=== PATIENT | male | born 1945 | race Two or more races ===

== ENCOUNTER 2017-04-13 08:10 | Day surgery (SDC) | payer MEDICARE, OTHER ==
[2017-04-12 11:08] VITALS: BMI 27.2
[~2017-04-13 08:10] MED LIST: LACTATED RINGERS 1,000 ML IV SCH
[2017-04-13 09:00] VITALS: TEMP 97.8
[2017-04-13] MEDS ORDERED: LIDOCAINE 1% 20 ML VIAL (10MG/ML) FOR IV START INTRADERMA ONE (09:02)
[2017-04-13 09:06] LABS: Glucose,Whole Blood 113 mg/dL (75-99)
[2017-04-13] MEDS ORDERED: GLYCOPYRROLATE 0.2 MG/ML 2 ML VIAL ONE (09:09)
[2017-04-13] MEDS ORDERED: LIDOCAINE 1% INJ 10MG/ML (20 ML MDV) ONE (09:09)
[2017-04-13] MEDS ORDERED: PROPOFOL 10 MG/ML 20 ML VIAL IV ONE (09:09)
--- NOTE | 2017-04-13 09:43 | P.PCN ---
Date of Procedure: 04/13/17 Procedure(s) Performed: Brief history: Patient is a pleasant 71-year-old male scheduled for an elective upper endoscopy as well as colonoscopy as a part of evaluation of I deficiency anemia. He was recently noted to have a hemoglobin of 11.5 g/dL. He has history of atrial fibrillation and valve replacement and has been on oral anticoagulation with Coumadin. Procedure performed: Esophagogastroduodenoscopy with biopsy Colonoscopy with snare polypectomy Preoperative diagnosis: Iron deficiency anemia Anesthesia: MAC Procedure: After informed consent was obtained from the patient was brought into the endoscopy unit and IV sedation was administered by anesthesia under continuous monitoring. Initially upper endoscopy was done. The Olympus GF 160 video endoscope was inserted inserted into the mouth and esophagus intubated without any difficulty and was gradually advanced into the stomach and duodenum and carefully examined. The bulb and second part of the duodenum appeared normal. The scope was then withdrawn into the stomach adequately insufflated with air and upon careful examination the antrum had mild gastritis and biopsies were done from this area. The body, cardia and fundus appeared normal. The scope was then withdrawn into the esophagus. The GE junction was located at 40 cm to the incisors. There was a 5 mm polyp noted at the GE junction and this was biopsied. The GE junction appeared regular with no erythema erosions or ulcerations. Rest of the esophagus appeared normal. Patient tolerated the procedure well. At this time the patient continued to remain sedation. Initial digital rectal examination was normal. Olympus CF 160 video colonoscope was then inserted into the rectum and gradually advanced to the cecum without any difficulty. Careful examination was performed as the scope was gradually being withdrawn. The prep was excellent. The cecum, appeared normal. In the ascending colon close to the hepatic flexure there was a 2 cm broad-based polyp that was removed by piecemeal snare polypectomy and complete polypectomy was accomplished. The rest of theascending colon, transverse colon, descending colon, sigmoid colon and rectum appeared normal. Retroflexion was performed in the rectum and no lesions were noted. Patient tolerated the procedure well. Impression: 1. Upper endoscopy revealed mild antral gastritis and a small 5 mm GE junction polyp that was biopsied 2. Colonoscopy revealed 2 cm broad-based distal ascending colon polyp status post polypectomy. Rest of the colon appeared normal Recommendations: Findings of this examination were discussed with the patient as well as his family. He was advised to follow with the biopsy results. He will hold off on the Coumadin for today and tomorrow and resume on Sunday. At this time will follow with the biopsy results and if the biopsy shows a tubular adenoma he can have a repeat colonoscopy in 3 years
[2017-04-13 10:10] VITALS: BP 162/73; PULSE 56; RESP 18
== END 2017-04-13 10:52 | disposition home or self-care (01) ==
LOC: ORWHC2ENDO 08:10
PROVIDERS: ATTEND Internal Medicine Gastroenterology
DX: D12.2 Benign neoplasm of ascending colon (principal); K31.7 Polyp of stomach and duodenum; K29.50 Unspecified chronic gastritis without bleeding; I48.91 Unspecified atrial fibrillation; D50.9 Iron deficiency anemia, unspecified; I10 Essential (primary) hypertension; E11.9 Type 2 diabetes mellitus without complications; N40.0 Benign prostatic hyperplasia without lower urinary tract symptoms; Z95.2 Presence of prosthetic heart valve; Z79.01 Long term (current) use of anticoagulants; Z79.84 Long term (current) use of oral hypoglycemic drugs; Z79.899 Other long term (current) drug therapy
CPT/HCPCS: 45385; 43239; 88305; 88342; J2001; J2704

== ENCOUNTER 2017-04-20 16:09 | Inpatient (IN) | payer MEDICARE, OTHER ==
[2017-04-20] MEDS ORDERED: DILTIAZEM 125 MG in SODIUM CHLORIDE 0.9% 100 ML IV ONE (16:28)
[2017-04-20] MEDS ORDERED: SODIUM CHLORIDE 0.9% 1,000 ML IV STA ×2 (16:28)
[2017-04-20] MEDS ORDERED: DILTIAZEM 5 MG/ML 5 ML VIAL IVP STA (16:28)
[2017-04-20 16:42] LABS: Anisocytosis Slight; Basophils % (A) 0 %; CH 24.3; CHCM 30.1; Eosinophils # (A) 0.1 k/uL (0-0.7); Eosinophils % (A) 3 %; HCT 42.5 % (39.0-53.0); HDW 2.97; HGB 12.6 gm/dL (13.0-17.5); Hypochromasia Marked; Luc # (Auto) 0.12; Luc % (Auto) 2; Lymphocytes # (A) 1.4 k/uL (1.0-4.8); Lymphocytes % (A) 26 %; MCH 24.1 pg (25.0-35.0); MCHC 29.8 g/dL (31.0-37.0); Mean Platelet Volume 9.9; Monocytes # (A) 0.4 k/uL (0-1.0); Monocytes % (A) 8 %; Neutrophils # (A) 3.2 k/uL (1.3-7.7); Neutrophils % (A) 61 %; RBC 5.24 m/uL (4.30-5.90); RDW 16.8 % (11.5-15.5); WBC 5.3 k/uL (3.8-10.6)
--- NOTE | 2017-04-20 16:50 | ED ---
General Adult HPI - General Chief complaint: Dizziness Stated complaint: Dizziness Time Seen by Provider: 04/20/17 16:23 Source: patient, RN notes reviewed, old records reviewed Mode of arrival: wheelchair Limitations: no limitations - History of Present Illness Initial comments: This is a 71-year-old male to the ER for evaluation of near syncopal event. Patient states he has palpitations and his heart feels irregular. Patient has history of atrial fibrillation and high blood pressure. Taking all medications as prescribed. Patient sometimes goes out of normal sinus rhythm into A. fib. This happens about twice a year. Patient states he feels a little bit weak and lightheaded. Currently just restart anticoagulation secondary to having recent procedure. Patient denies any other complaints. Patient denies chest pain no recent fever nausea vomiting or diarrhea - Related Data Home Medications Medication Instructions Recorded Confirmed Atenolol [Tenormin] 50 mg PO HS 04/12/17 04/20/17 Atorvastatin [Lipitor] 20 mg PO DAILY 04/12/17 04/20/17 Dutasteride [Avodart] 0.5 mg PO DAILY 04/12/17 04/20/17 Losartan Potassium [Cozaar] 100 mg PO DAILY 04/12/17 04/20/17 Tamsulosin HCl [Flomax] 0.4 mg PO HS 04/12/17 04/20/17 Warfarin [Coumadin] 2.5 mg PO Q48H 04/12/17 04/20/17 Warfarin [Coumadin] 5 mg PO Q48H 04/12/17 04/20/17 amLODIPine [Norvasc] 10 mg PO HS 04/12/17 04/20/17 metFORMIN HCL [Glucophage] 500 mg PO HS 04/12/17 04/20/17 traZODone HCL 50 mg PO HS PRN 04/12/17 04/20/17 sitaGLIPtin PHOS/metFORMIN HCL 1 tab PO BID 04/20/17 04/20/17 [Janumet 50-500 mg Tablet] Allergies Allergy/AdvReac Type Severity Reaction Status Date / Time No Known Allergies Allergy Verified 04/20/17 17:19 Review of Systems ROS Statement: Those systems with pertinent positive or pertinent negative responses have been documented in the HPI. ROS Other: All systems not noted in ROS Statement are negative. Past Medical History Past Medical History: Atrial Fibrillation, Diabetes Mellitus, Hypertension History of Any Multi-Drug Resistant Organisms: None Reported Additional Past Surgical History / Comment(s): MITRAL VALVE REPLACEMENT Past Psychological History: No Psychological Hx Reported Smoking Status: Never smoker Past Alcohol Use History: None Reported Past Drug Use History: None Reported General Exam Limitations: no limitations General appearance: alert, in no apparent distress Head exam: Present: atraumatic, normocephalic, normal inspection Eye exam: Present: normal appearance, PERRL, EOMI. Absent: scleral icterus, conjunctival injection, periorbital swelling ENT exam: Present: normal exam, mucous membranes moist Neck exam: Present: normal inspection. Absent: tenderness, meningismus, lymphadenopathy Respiratory exam: Present: normal lung sounds bilaterally. Absent: respiratory distress, wheezes, rales, rhonchi, stridor Cardiovascular Exam: Present: tachycardia, irregular rhythm, normal heart sounds. Absent: systolic murmur, diastolic murmur, rubs, gallop, clicks GI/Abdominal exam: Present: soft, normal bowel sounds. Absent: distended, tenderness, guarding, rebound, rigid Extremities exam: Present: normal inspection, full ROM, normal capillary refill. Absent: tenderness, pedal edema, joint swelling, calf tenderness Back exam: Present: normal inspection Neurological exam: Present: alert, oriented X3, CN II-XII intact Psychiatric exam: Present: normal affect, normal mood Skin exam: Present: warm, dry, intact, normal color. Absent: rash Course Vital Signs 04/20/17 04/20/17 04/20/17 16:11 17:06 17:24 Temperature 97.6 F Pulse Rate 81 70 77 Respiratory 16 18 Rate Blood Pressure 139/74 130/73 O2 Sat by Pulse 99 98 Oximetry - Reevaluation(s) Reevaluation #1: 04/20/17 18:10 In speaking with patient's family, patient had near syncopal event secondary to his heart rate at home. They're concerned for patient safety EKG Findings - EKG Comments: EKG Findings:: EKG shows atrial flutter with RVR rate 104, QRS 90, QTC 448. EKG repeat. EKG shows atrial fibrillation rate of 75, QRS 86, QTc 451 Medical Decision Making - Medical Decision Making 72 male here for evaluation. Patient in A. fib with RVR. Patient be admitted for rate control and anticoagulation. - Lab Data Result diagrams: 04/20/17 16:30 04/20/17 16:30 Lab Results 04/20/17 04/20/17 04/20/17 Range/Units 16:30 16:30 16:30 WBC 5.3 (3.8-10.6) k/uL RBC 5.24 (4.30-5.90) m/uL Hgb 12.6 L (13.0-17.5) gm/dL Hct 42.5 (39.0-53.0) % MCV 81.0 (80.0-100.0) fL MCH 24.1 L (25.0-35.0) pg MCHC 29.8 L (31.0-37.0) g/dL RDW 16.8 H (11.5-15.5) % Plt Count 190 (150-450) k/uL Neutrophils % 61 % Lymphocytes % 26 % Monocytes % 8 % Eosinophils % 3 % Basophils % 0 % Neutrophils # 3.2 (1.3-7.7) k/uL Lymphocytes # 1.4 (1.0-4.8) k/uL Monocytes # 0.4 (0-1.0) k/uL Eosinophils # 0.1 (0-0.7) k/uL Basophils # 0.0 (0-0.2) k/uL Hypochromasia Marked Anisocytosis Slight PT (9.0-12.0) sec INR (<1.2) APTT (22.0-30.0) sec Sodium 144 (137-145) mmol/L Potassium 4.2 (3.5-5.1) mmol/L Chloride 106 (98-107) mmol/L Carbon Dioxide 27 (22-30) mmol/L Anion Gap 11 mmol/L BUN 18 (9-20) mg/dL Creatinine 1.21 (0.66-1.25) mg/dL Est GFR (MDRD) Af Amer >60 (>60 ml/min/1.73 sqM) Est GFR (MDRD) Non-Af 59 (>60 ml/min/1.73 sqM) Glucose 93 (74-99) mg/dL Calcium 9.4 (8.4-10.2) mg/dL Phosphorus 3.7 (2.5-4.5) mg/dL Magnesium 2.0 (1.6-2.3) mg/dL Total Bilirubin 0.3 (0.2-1.3) mg/dL AST 22 (17-59) U/L ALT 36 (21-72) U/L Alkaline Phosphatase 70 (38-126) U/L Total Creatine Kinase 222 H (55-170) U/L CK-MB (CK-2) 2.7 H* (0.0-2.4) ng/mL CK-MB (CK-2) Rel Index 1.2 Troponin I <0.012 (0.000-0.034) ng/mL Total Protein 6.6 (6.3-8.2) g/dL Albumin 4.2 (3.5-5.0) g/dL 04/20/17 Range/Units 16:30 WBC (3.8-10.6) k/uL RBC (4.30-5.90) m/uL Hgb (13.0-17.5) gm/dL Hct (39.0-53.0) % MCV (80.0-100.0) fL MCH (25.0-35.0) pg MCHC (31.0-37.0) g/dL RDW (11.5-15.5) % Plt Count (150-450) k/uL Neutrophils % % Lymphocytes % % Monocytes % % Eosinophils % % Basophils % % Neutrophils # (1.3-7.7) k/uL Lymphocytes # (1.0-4.8) k/uL Monocytes # (0-1.0) k/uL Eosinophils # (0-0.7) k/uL Basophils # (0-0.2) k/uL Hypochromasia Anisocytosis PT 16.0 H (9.0-12.0) sec INR 1.7 H (<1.2) APTT 27.8 (22.0-30.0) sec Sodium (137-145) mmol/L Potassium (3.5-5.1) mmol/L Chloride (98-107) mmol/L Carbon Dioxide (22-30) mmol/L Anion Gap mmol/L BUN (9-20) mg/dL Creatinine (0.66-1.25) mg/dL Est GFR (MDRD) Af Amer (>60 ml/min/1.73 sqM) Est GFR (MDRD) Non-Af (>60 ml/min/1.73 sqM) Glucose (74-99) mg/dL Calcium (8.4-10.2) mg/dL Phosphorus (2.5-4.5) mg/dL Magnesium (1.6-2.3) mg/dL Total Bilirubin (0.2-1.3) mg/dL AST (17-59) U/L ALT (21-72) U/L Alkaline Phosphatase (38-126) U/L Total Creatine Kinase (55-170) U/L CK-MB (CK-2) (0.0-2.4) ng/mL CK-MB (CK-2) Rel Index Troponin I (0.000-0.034) ng/mL Total Protein (6.3-8.2) g/dL Albumin (3.5-5.0) g/dL - Radiology Data Radiology results: report reviewed (CXR is negative fora cute disease), image reviewed Disposition Clinical Impression: Atrial fibrillation with RVR Disposition: ADMITTED IP TO THIS HOSP Condition: Good Referrals: Corey Retana MD [Primary Care Provider] - 1-2 days
[2017-04-20 16:51] LABS: INR 1.7 (<1.2); Partial Thromboplastin Time 27.8 sec (22.0-30.0)
[2017-04-20 16:52] LABS: ALT 36 U/L (21-72); AST 22 U/L (17-59); Alkaline Phosphatase 70 U/L (38-126); Anion Gap 11 mmol/L; Blood Urea Nitrogen 18 mg/dL (9-20); Calcium 9.4 mg/dL (8.4-10.2); Carbon Dioxide 27 mmol/L (22-30); Chloride 106 mmol/L (98-107); Glucose 93 mg/dL (74-99); Non-African American GFR(MDRD) 59 (>60 ml/min/1.73 sqM); Phosphorus 3.7 mg/dL (2.5-4.5); Potassium 4.2 mmol/L (3.5-5.1); Sodium 144 mmol/L (137-145); Total Bilirubin 0.3 mg/dL (0.2-1.3); Total Protein 6.6 g/dL (6.3-8.2)
[2017-04-20 17:00] LABS: Creatine Kinase 222 U/L (55-170)
[2017-04-20 17:14] LABS: Troponin I <0.012 ng/mL (0.000-0.034)
[2017-04-20 17:20] LABS: Creatine Kinase MB 2.7 ng/mL (0.0-2.4)
--- NOTE | 2017-04-20 17:53 | XR ---
EXAMINATION TYPE: XR chest 2V DATE OF EXAM: 04/20/2017 COMPARISON: NONE HISTORY: Atrial fibrillation. Weakness. TECHNIQUE: Frontal and lateral views of the chest are obtained. FINDINGS: There is no heart failure nor confluent pneumonic infiltrate. There are sternal wires. The re are chest leads. Costophrenic angles are clear. Bony thorax appears intact. IMPRESSION: No active cardiopulmonary disease. Old left clavicle fracture noted.
[2017-04-20] MEDS ORDERED: HEPARIN SODIUM,PORCINE 5,000 UNIT/ML 1 ML VIAL IV ONE (18:06)
[2017-04-20] MEDS ORDERED: HEPARIN SODIUM,PORCINE 5,000 UNIT/ML 1 ML VIAL IV PRN (18:06)
[2017-04-20] MEDS ORDERED: NITROGLYCERIN SL TABS 0.4 MG TAB SUBLINGUAL PRN (18:06)
[2017-04-20] MEDS ORDERED: HEPARIN SODIUM,PORCINE/D5W PMX 25,000 UNIT in DEXTROSE/WATER 1 500ML.BAG IV SCH (18:15)
[2017-04-20 20:45] VITALS: BMI 28.5
[2017-04-20 20:47] LABS: Glucose,Whole Blood 131 mg/dL (75-99)
[2017-04-20] MEDS ORDERED: metFORMIN 500 MG TAB PO SCH (21:00)
[2017-04-20] MEDS ORDERED: METOPROLOL TARTRATE 50 MG TAB PO SCH (21:00)
[2017-04-20] MEDS: amLODIPine 10 MG TAB PO SCH (21:41)
[2017-04-20] MEDS: metFORMIN 500 MG TAB PO SCH (21:41)
[2017-04-20] MEDS: TAMSULOSIN 0.4 MG CAP.ER.24H PO SCH (21:42)
[2017-04-20] MEDS: traZODone HCL 50 MG TAB PO PRN (22:13)
[2017-04-20] MEDS: ATENOLOL 50 MG TAB PO SCH (22:13)
[2017-04-20] MEDS: SODIUM CHLORIDE 0.9% 1,000 ML IV SCH (23:11)
[2017-04-20] MEDS ORDERED: traMADol 50 MG TAB PO PRN (23:45)
[2017-04-20] MEDS ORDERED: ALPRAZolam 0.25 MG TAB PO PRN (23:45)
[2017-04-20] MEDS ORDERED: ONDANSETRON 4 MG/2 ML VIAL IVP PRN (23:46)
[2017-04-20] MEDS ORDERED: MELATONIN 5 MG TABLET PO PRN (23:46)
[2017-04-21 00:34] LABS: Creatine Kinase 153 U/L (55-170)
[2017-04-21 00:47] LABS: Troponin I <0.012 ng/mL (0.000-0.034)
[2017-04-21 05:56] LABS: Glucose,Whole Blood 110 mg/dL (75-99)
[2017-04-21] MEDS: SODIUM CHLORIDE 0.9% 1,000 ML IV SCH (06:19)
[2017-04-21 06:32] LABS: Mean Platelet Volume 10.8
[2017-04-21 06:43] LABS: Cholesterol 64 mg/dL (<200); HDL Cholesterol 25 mg/dL (40-60)
[2017-04-21] MEDS: LINAGLIPTIN 5 MG TABLET PO SCH (06:47)
[2017-04-21] MEDS: metFORMIN 500 MG TAB PO SCH ×2 (06:47→16:48)
[2017-04-21 06:52] LABS: Creatine Kinase 134 U/L (55-170)
[2017-04-21 07:03] LABS: Creatine Kinase MB 1.6 ng/mL (0.0-2.4); Troponin I <0.012 ng/mL (0.000-0.034)
[2017-04-21] MEDS ORDERED: metFORMIN 500 MG TAB PO SCH (07:30)
[2017-04-21] MEDS: ATENOLOL 50 MG TAB PO SCH (08:35)
[2017-04-21] MEDS: LOSARTAN 50 MG TAB PO SCH (08:35)
[2017-04-21] MEDS: FINASTERIDE 5 MG TAB PO SCH (08:35)
[2017-04-21] MEDS ORDERED: ASPIRIN 325 MG TAB PO SCH (09:00)
[2017-04-21] MEDS ORDERED: ATORVASTATIN 20 MG TAB PO SCH ×2 (09:00→11:35)
[2017-04-21] MEDS ORDERED: ATORVASTATIN 40 MG TAB PO SCH (10:09)
[2017-04-21] MEDS ORDERED: FUROSEMIDE 10 MG/ML 2 ML VIAL IV STA (10:10)
[2017-04-21] MEDS ORDERED: FUROSEMIDE 10 MG/ML 4 ML VIAL ONE (10:16)
[2017-04-21 10:26] LABS: Prothrombin Time 19.5 sec (9.0-12.0)
[2017-04-21 11:21] LABS: Glucose,Whole Blood 66 mg/dL (75-99)
[2017-04-21 11:36] LABS: Glucose,Whole Blood 104 mg/dL (75-99)
--- NOTE | 2017-04-21 12:01 | CONS ---
CONSULTATION Mr. Hairston is a 71-year-old gentleman who is seen for cardiac evaluation. This patient's medical record is reviewed. The patient gives a history that he felt irregular heartbeat on and off yesterday. It continued for several hours. He was slightly dizzy he did not have any significant shortness of breath. The patient gives a history that this does happen 2 or 3 times a year. The last time it happened was about 4 or 5 months ago. The patient is otherwise moderately active physically. He walks 20 to 30 minutes a day. The patient is status post mitral valve replacement at [facility] about 3 or 4 years ago. He has a history of hypertension and diabetes. There is no history of angina. There is no history of prior myocardial infarction. HOME MEDICATIONS: Home medications include to Tenormin, Lipitor 20 mg daily, Avodart, Cozaar 100 mg daily, Coumadin, Norvasc, Glucophage and Janumet. PAST MEDICAL HISTORY: Past medical history includes history of hypertension, diabetes, atrial fibrillation, mitral valve replacement. SOCIAL HISTORY: Smoking history, no history of any smoking. PHYSICAL EXAMINATION: Physical examination at present reveals a 71-year-old gentleman who does not appear to be in any acute distress. The patient's heart rate now is 65 per minute, blood pressure is 132/94 mmHg, oxygen saturation is 94%. Head/ENT examination is negative. Neck is supple. Jugular venous pressure is elevated. Both the carotid pulses are felt. There is no bruit. Chest is symmetrical. HEART: The PMI is not felt. First and second heart sounds are normal. Lungs examination reveal bilateral basal rales. Abdomen is soft. EXTREMITIES: There is a trace leg edema. The patient recently had a echocardiogram done, which showed evidence of a normally functioning prosthetic valve. Patient had mild pulmonary hypertension. Chest x-ray suggestive of possible mild congestive cardiac failure. The patient's INR is 1.7. UA is negative. The patient's troponins are normal. The patient's cholesterol is 64 and LDL is 19. FINAL IMPRESSION: 1. This patient came with the paroxysmal atrial fibrillation associated with little dizziness. The patient is now converted to the normal sinus rhythm. Patient has probably mild congestive cardiac failure with some elevation in jugular venous pressure. 2. History of diabetes and hypertension. 3. Status post mitral valve replacement. RECOMMENDATIONS: I discussed with the patient and daughter, we will try the patient on flecainide 50 mg b.i.d. to prevent the recurrent episodes of atrial fibrillation. We will discontinue Cardizem, heparin and give him 5 mg of Coumadin today. I will check the BNP and give him 1 dose of Lasix 20 mg IV. Patient would be ambulated. If he remains stable, the patient can be discharged home tomorrow. Would recommend to do a stress test as an outpatient on flecainide. NHUNG / BALWINDERN: [id number] /
[2017-04-21] MEDS: SPIRONOLACTONE 25 MG TAB PO SCH (13:09)
[2017-04-21] MEDS: FLECAINIDE 50 MG TAB PO SCH ×2 (13:10→20:20)
[2017-04-21 16:44] LABS: Glucose,Whole Blood 160 mg/dL (75-99)
--- NOTE | 2017-04-21 17:24 | P.HPIM ---
History of Present Illness H&P Date: 04/21/17 Chief Complaint: Dizziness Mr. Hairston is a 71-year-old male with a known history of atrial fibrillation on anticoagulation with Coumadin, hypertension, diabetes type 2 non-insulin- dependent and also history of mitral valvel repair 10 years ago came to ER with complaints of dizziness and near syncope. Patient says that he has atrial fibrillation and sometimes he does have palpitations. At this particular time patient has the symptoms for a prolonged time for about few hours and he felt like heart beating fast and made him come to the ER. Patient also felt weak and lightheaded. Patient does take Coumadin for anticoagulation. He follows with Dr. Butcher as an outpatient. Denied any fever or chills. No nausea vomiting or diarrhea. No complaints of abdominal pain. Patient also had some tiredness and weakness. Denied any exertional short of breath EKG showed atrial fibrillation with a rapid ventricular rate 101 Chest x-ray showed no active pulmonary process. Troponin 3 negative. BNP 555 Patient had recent echocardiogram at Dr. Butcher's office showed normal ejection fraction. Moderate tricuspid regurgitation and severely dilated left atrium. Review of Systems Constitutional: Patient denies any fever or chills . No generalized weakness or weight loss. Abdomen: Patient denied nausea vomiting and diarrhea and abdominal pain. Cardiovascular: Patient denies any chest pain or short of breath no palpitations. No orthopnea no PND no leg swelling Respiratory: patient denied any cough is from production. No shortness of breath Neurologic: Patient denied any numbness or tingling headache. Musculoskeletal: Patient denies any complaints of joint swelling or deformity. Skin: Negative Psychiatric: Negative Endocrine: No heat or cold intolerance. No recent weight gain. Genitourinary: No dysuria or hematuria. All other 14 point ROS negative except the above Past Medical History Past Medical History: Atrial Fibrillation, Diabetes Mellitus, Hypertension History of Any Multi-Drug Resistant Organisms: None Reported Additional Past Surgical History / Comment(s): MITRAL VALVE REPLACEMENT Past Anesthesia/Blood Transfusion Reactions: No Reported Reaction Past Psychological History: No Psychological Hx Reported Smoking Status: Never smoker Past Alcohol Use History: None Reported Past Drug Use History: None Reported - Past Family History Mother Family Medical History: Diabetes Mellitus, Hypertension Additional Family Medical History / Comment(s): brain hemorrhage, past away Father Family Medical History: Congestive Heart Failure (CHF), Myocardial Infarction ( [place]) Medications and Allergies Home Medications Medication Instructions Recorded Confirmed Type Atenolol [Tenormin] 50 mg PO HS 04/12/17 04/20/17 History Atorvastatin [Lipitor] 20 mg PO DAILY 04/12/17 04/20/17 History Dutasteride [Avodart] 0.5 mg PO DAILY 04/12/17 04/20/17 History Losartan Potassium [Cozaar] 100 mg PO DAILY 04/12/17 04/20/17 History Tamsulosin HCl [Flomax] 0.4 mg PO HS 04/12/17 04/20/17 History Warfarin [Coumadin] 2.5 mg PO Q48H 04/12/17 04/20/17 History Warfarin [Coumadin] 5 mg PO Q48H 04/12/17 04/20/17 History amLODIPine [Norvasc] 10 mg PO HS 04/12/17 04/20/17 History metFORMIN HCL [Glucophage] 500 mg PO HS 04/12/17 04/20/17 History traZODone HCL 50 mg PO HS PRN 04/12/17 04/20/17 History sitaGLIPtin PHOS/metFORMIN HCL 1 tab PO BID 04/20/17 04/20/17 History [Janumet 50-500 mg Tablet] Allergies Allergy/AdvReac Type Severity Reaction Status Date / Time No Known Allergies Allergy Verified 04/20/17 17:19 Physical Exam Vitals: Vital Signs Temp Pulse Pulse Resp BP BP Pulse Ox 04/21/17 08:00 65 16 04/21/17 03:41 97.1 F L 65 16 132/94 94 L 04/21/17 00:00 63 16 123/72 95 04/20/17 20:11 96.9 F L 61 16 122/76 98 04/20/17 19:05 97.6 F 66 16 125/71 98 04/20/17 18:42 64 18 125/71 96 04/20/17 18:20 60 18 140/66 97 04/20/17 17:24 77 04/20/17 17:06 70 18 130/73 98 04/20/17 16:11 97.6 F 81 16 139/74 99 Intake and Output 04/20/17 04/21/17 04/21/17 22:59 06:59 14:59 Intake Total 0 400 640.526 Balance 0 400 640.526 Intake: Intake, IV Titration 0 280.526 Amount Diltiazem 125 mg In 0 Sodium Chloride 0.9% 100 ml @ 5 MG/HR 5 mls/hr IV .Q24H [facility] Rx#:[id number] Heparin Sodium,Porcine/ 280.526 D5w Pmx 25,000 unit In Dextrose/Water 1 500ml. bag @ 11.36 UNITS/KG/HR 19.99 mls/hr IV .Q24H [facility] Rx#:[id number] Oral 400 360 Other: Voiding Method Toilet Toilet # Voids 1 Weight 90.265 kg 90.4 kg PHYSICAL EXAMINATION: Patient is lying in the bed comfortably, no acute distress, awake alert and oriented.. HEENT: Normocephalic. Neck is supple. Pupils reactive. Nostrils clear. Oral cavity is moist. Ears reveal no drainage. Neck reveals no JVD, carotid bruits, or thyromegaly. CHEST EXAMINATION: Trachea is central. Symmetrical expansion. Right basilar crackles. No wheezing. CARDIAC: Normal S1, S2 with no gallops. Possible diastolic murmur ABDOMEN: Soft. Bowel sounds normal. No organomegaly. No abdominal bruits. Extremities: reveal no edema. No clubbing or cyanosis Neurologically awake, alert, oriented x3 with well-coordinated movements. No focal deficits noted Skin: No rash or skin lesions. Psychiatric: Operative. Nonsuicidal Musculoskeletal: No joint swelling or deformity. Normal range of motion. Results CBC & Chem 7: 04/21/17 05:34 04/20/17 16:30 Labs: Abnormal Lab Results - Last 24 Hours (Table) 04/20/17 04/20/17 04/20/17 Range/Units 16:30 16:30 16:30 Hgb 12.6 L (13.0-17.5) gm/dL MCH 24.1 L (25.0-35.0) pg MCHC 29.8 L (31.0-37.0) g/dL RDW 16.8 H (11.5-15.5) % PT 16.0 H (9.0-12.0) sec INR 1.7 H (<1.2) APTT (22.0-30.0) sec POC Glucose (mg/dL) (75-99) mg/dL Total Creatine Kinase 222 H (55-170) U/L CK-MB (CK-2) 2.7 H* (0.0-2.4) ng/mL HDL Cholesterol (40-60) mg/dL 04/20/17 04/20/17 04/21/17 Range/Units 20:39 23:40 05:33 Hgb (13.0-17.5) gm/dL MCH (25.0-35.0) pg MCHC (31.0-37.0) g/dL RDW (11.5-15.5) % PT (9.0-12.0) sec INR (<1.2) APTT 51.8 H (22.0-30.0) sec POC Glucose (mg/dL) 131 H (75-99) mg/dL Total Creatine Kinase (55-170) U/L CK-MB (CK-2) (0.0-2.4) ng/mL HDL Cholesterol 25 L (40-60) mg/dL 04/21/17 04/21/17 Range/Units 05:53 05:55 Hgb (13.0-17.5) gm/dL MCH (25.0-35.0) pg MCHC (31.0-37.0) g/dL RDW (11.5-15.5) % PT (9.0-12.0) sec INR (<1.2) APTT 38.0 H (22.0-30.0) sec POC Glucose (mg/dL) 110 H (75-99) mg/dL Total Creatine Kinase (55-170) U/L CK-MB (CK-2) (0.0-2.4) ng/mL HDL Cholesterol (40-60) mg/dL Thrombosis Risk Factor Assmnt - Choose All That Apply Any of the Below Risk Factors Present?: Yes Each Factor Represents 1 point: Obesity (BMI >25) Each Risk Factor Represents 2 Points: Age 61-74 years Thrombosis Risk Factor Assessment Total Risk Factor Score: 3 Thrombosis Risk Factor Assessment Level: Moderate Risk Assessment and Plan Assessment: #1 dizziness and near syncope likely due to A. fib with RVR #2 paroxysmal atrial fibrillation on anticoagulation with Coumadin #3 moderate aortic regurgitation and severely dilated left atrium with normal EF as per recent echocardiogram #4 diabetes type 2 #5 hypertension #6 history of mitral valve repair. #7 possible acute CHF with preserved ejection fraction. Underlying valvular heart disease Plan: Patient was started back on his Tenormin dose. Heart rate was better controlled and did not require Cardizem drip. Due to recurrent atrial fibrillation episodes patient was started on flecainide as per cardiology recommendations. Patient was given a dose of Lasix and follow closely continue with the Coumadin dosing and further recommendations based on the clinical course. Discussed with patient's daughter in detail about his medical condition and management. Time with Patient: Greater than 30
[2017-04-21 17:36] LABS: Iron Saturation 4.09 (15.00-50.00)
[2017-04-21] MEDS ORDERED: WARFARIN 5 MG TAB PO SCH ×2 (18:00)
[2017-04-21] MEDS: TAMSULOSIN 0.4 MG CAP.ER.24H PO SCH (20:20)
[2017-04-21] MEDS: amLODIPine 10 MG TAB PO SCH (20:20)
[2017-04-21 21:01] LABS: Glucose,Whole Blood 124 mg/dL (75-99)
[2017-04-21] MEDS: traZODone HCL 50 MG TAB PO PRN (21:04)
[2017-04-22 06:25] LABS: Glucose,Whole Blood 118 mg/dL (75-99)
[2017-04-22 06:35] LABS: Prothrombin Time 19.6 sec (9.0-12.0)
[2017-04-22 06:36] LABS: Mean Platelet Volume 7.7
[2017-04-22] MEDS: LINAGLIPTIN 5 MG TABLET PO SCH (06:52)
[2017-04-22] MEDS: metFORMIN 500 MG TAB PO SCH (06:52)
[2017-04-22] MEDS: FINASTERIDE 5 MG TAB PO SCH (08:23)
[2017-04-22] MEDS: LOSARTAN 50 MG TAB PO SCH (08:24)
[2017-04-22] MEDS: FLECAINIDE 50 MG TAB PO SCH (08:24)
[2017-04-22] MEDS: SPIRONOLACTONE 25 MG TAB PO SCH (08:24)
[2017-04-22] MEDS: ATENOLOL 50 MG TAB PO SCH (08:24)
[2017-04-22 09:22] VITALS: TEMP 97
[2017-04-22 11:30] LABS: Glucose,Whole Blood 102 mg/dL (75-99)
[2017-04-22 11:32] VITALS: BP 143/80; PULSE 61; RESP 18
--- NOTE | 2017-04-22 15:53 | PN ---
PROGRESS NOTE This patient was admitted with paroxysmal atrial fibrillation. The patient was started on flecainide 50 mg b.i.d. He is tolerating well. He is remaining in normal sinus rhythm. The patient's blood pressure is 143/80 mmHg. First and second heart sounds are normal. Lungs are clinically clear to auscultation and percussion. Now there is no evidence of any elevated jugular venous pressure. The patient will be discharged home on flecainide and Aldactone. We will check a BMP in 3-4 days and patient will follow up with Dr. SULAIMAN Bucther within a week to 2 weeks. MMODL / IJN: [id number] /
[2017-04-22] MEDS ORDERED: WARFARIN 2.5 MG TAB PO SCH (18:00)
--- NOTE | 2017-06-18 21:36 | P.DS ---
Providers Date of admission: 04/20/17 18:06 Expected date of discharge: 04/22/17 Attending physician: Soniya Damian Consults: 04/20/17 18:06 Consult Physician Urgent Consulting Provider: Antonieta Murillo Consult Reason/Comments: afib Do you want consulting provider notified?: Yes Primary care physician: Corey Retana Hospital Course: Discharge diagnosis #1 dizziness and near syncope likely due to A. fib with RVR #2 paroxysmal atrial fibrillation on anticoagulation with Coumadin #3 moderate aortic regurgitation and severely dilated left atrium with normal EF as per recent echocardiogram #4 diabetes type 2 #5 hypertension #6 history of mitral valve repair. #7 possible acute CHF with preserved ejection fraction. Underlying valvular heart disease. Improved symptomatically with the diuresis. Hospital course Mr. Hairston is a 71-year-old male with a known history of atrial fibrillation on anticoagulation with Coumadin, hypertension, diabetes type 2 non-insulin- dependent and also history of mitral valvel repair 10 years ago came to ER with complaints of dizziness and near syncope. Patient says that he has atrial fibrillation and sometimes he does have palpitations. At this particular time patient has the symptoms for a prolonged time for about few hours and he felt like heart beating fast and made him come to the ER. Patient also felt weak and lightheaded. Patient does take Coumadin for anticoagulation. He follows with Dr. Butcher as an outpatient. Denied any fever or chills. No nausea vomiting or diarrhea. No complaints of abdominal pain. Patient also had some tiredness and weakness. Denied any exertional short of breath EKG showed atrial fibrillation with a rapid ventricular rate 101 Chest x-ray showed no active pulmonary process. Troponin 3 negative. BNP 555 Patient had recent echocardiogram at Dr. Butcher's office showed normal ejection fraction. Moderate tricuspid regurgitation and severely dilated left atrium. Patient was started back on his Tenormin dose. Heart rate was better controlled and did not require Cardizem drip. Due to recurrent atrial fibrillation episodes patient was started on flecainide as per cardiology recommendations. Patient was given a dose of Lasix and followed closely continue with the Coumadin dosing. Patient will be continued on spironolactone. Discussed with patient's daughter in detail about his medical condition and management. Patient is stable to be discharged home. Discharge physical examination was done. Patient Condition at Discharge: Good Plan - Discharge Summary New Discharge Prescriptions: New Flecainide [Tambocor] 50 mg PO Q12HR tab Spironolactone [Aldactone] 25 mg PO DAILY tab Continue Warfarin [Coumadin] 2.5 mg PO Q48H traZODone HCL 50 mg PO HS PRN PRN Reason: Insomnia metFORMIN HCL [Glucophage] 500 mg PO HS Warfarin [Coumadin] 5 mg PO Q48H Dutasteride [Avodart] 0.5 mg PO DAILY Atorvastatin [Lipitor] 20 mg PO DAILY amLODIPine [Norvasc] 10 mg PO HS Losartan Potassium [Cozaar] 100 mg PO DAILY Atenolol [Tenormin] 50 mg PO HS Tamsulosin HCl [Flomax] 0.4 mg PO HS sitaGLIPtin PHOS/metFORMIN HCL [Janumet 50-500 mg Tablet] 1 tab PO BID Discharge Medication List Atenolol [Tenormin] 50 mg PO HS 04/12/17 [History] Atorvastatin [Lipitor] 20 mg PO DAILY 04/12/17 [History] Dutasteride [Avodart] 0.5 mg PO DAILY 04/12/17 [History] Losartan Potassium [Cozaar] 100 mg PO DAILY 04/12/17 [History] Tamsulosin HCl [Flomax] 0.4 mg PO HS 04/12/17 [History] Warfarin [Coumadin] 2.5 mg PO Q48H 04/12/17 [History] Warfarin [Coumadin] 5 mg PO Q48H 04/12/17 [History] amLODIPine [Norvasc] 10 mg PO HS 04/12/17 [History] metFORMIN HCL [Glucophage] 500 mg PO HS 04/12/17 [History] traZODone HCL 50 mg PO HS PRN 04/12/17 [History] sitaGLIPtin PHOS/metFORMIN HCL [Janumet 50-500 mg Tablet] 1 tab PO BID 04/20/17 [History] Flecainide [Tambocor] 50 mg PO Q12HR tab 04/22/17 [Rx] Spironolactone [Aldactone] 25 mg PO DAILY tab 04/22/17 [Rx] Follow up Appointment(s)/Referral(s): Corey Retana MD [Primary Care Provider] - 1-2 days (Offices are closed at this time, please call to make a follow up appointment. ) Sonu Butcher MD [STAFF PHYSICIAN] - 1 Week (Offices are closed at this time , please call to make a follow up appointment.) Ambulatory/Diagnostic Orders: Basic Metabolic Panel [LAB.AMB] Time Frame: 7 Days, Location: Determined By Patient Complete Blood Count w/diff [LAB.AMB] Time Frame: 7 Days, Location: Determined By Patient Patient Instructions/Handouts: A-fib (Atrial Fibrillation) (DC) Activity/Diet/Wound Care/Special Instructions: Please followup with Cardiology clinic and repeat 2D echo Q6 months Discharge Disposition: HOME SELF-CARE
== END 2017-04-22 15:02 | disposition home or self-care (01) | DRG 310 ==
LOC: EC 16:09 → 6SEL 18:06
PROVIDERS: ADMIT Internal Medicine; ATTEND Internal Medicine
DX: I48.0 Paroxysmal atrial fibrillation (principal); I27.20 Pulmonary hypertension, unspecified; I11.0 Hypertensive heart disease with heart failure; I50.9 Heart failure, unspecified; R55 Syncope and collapse; E11.9 Type 2 diabetes mellitus without complications; I08.1 Rheumatic disorders of both mitral and tricuspid valves; Z79.01 Long term (current) use of anticoagulants; Z95.2 Presence of prosthetic heart valve; Z83.3 Family history of diabetes mellitus; Z82.49 Family history of ischemic heart disease and other diseases of the circulatory system; Z79.899 Other long term (current) drug therapy; Z79.84 Long term (current) use of oral hypoglycemic drugs
CPT/HCPCS: 36415; 71020; 80053; 80061; 82550; 82553; 82728; 83540; 83550; 83735; 83880; 84100; 84443; 84466; 84484; 85025; 85049; 85610; 85730; 93005; 96365; 96366; 96368; 96376; 99285

== ENCOUNTER → 2017-07-27 | Outpatient (CLI) | payer MEDICARE, OTHER ==
--- NOTE | 2017-07-27 11:26 | XR ---
EXAMINATION TYPE: XR chest 2V DATE OF EXAM: 07/27/2017 COMPARISON: Prior chest x-ray April 20, 2017. HISTORY: Pre-MRI clearance. TECHNIQUE: Frontal and lateral views of the chest are obtained. FINDINGS: Post-CABG changes with mediastinal clips and sternal wires is redemonstrated. There is chr onic parenchymal change without suspicious focal air space opacity, pleural effusion, or pneumothorax seen. The cardiac silhouette size is stable and upper limits of normal. The osseous structures ar e intact. IMPRESSION: No epicardial pacemaker wires are seen to prevent MRI study. Post CABG changes noted.
== END | disposition home or self-care (01) ==
LOC: RADXRMAIN 10:28
PROVIDERS: ATTEND Physical Medicine & Rehabilitation
DX: Z01.818 Encounter for other preprocedural examination (principal); M43.16 Spondylolisthesis, lumbar region; M47.817 Spondylosis without myelopathy or radiculopathy, lumbosacral region; M51.36 Other intervertebral disc degeneration, lumbar region; Z95.1 Presence of aortocoronary bypass graft
CPT/HCPCS: 71046

== ENCOUNTER → 2017-08-02 | Outpatient (CLI) | payer MEDICARE, OTHER ==
--- NOTE | 2017-08-02 16:25 | NM ---
EXAMINATION TYPE: NM bone scan whole body DATE OF EXAM: 08/02/2017 COMPARISON: Correlation lumbar MRI 01/30/2014 HISTORY: Low back pain Delayed whole-body scanning was performed following the injection of 24.8 mCi Tc 99m MDP. Images acq uired 3 hours post injection. FINDINGS: Soft tissue uptake is within normal limits. Uptake within the feet, knees, hands, shoulders, and hips is likely degenerative. Small punctate focus noted within the posterior calvarium is indeterminate. There is a spinal curvature. IMPRESSION: Degenerative changes as described. Mild spinal curvature, degenerative disc disease in the lumbar spi ne. Additional findings above.
== END | disposition home or self-care (01) ==
LOC: RADNMMAIN 10:37
PROVIDERS: ATTEND Physical Medicine & Rehabilitation
DX: M51.36 Other intervertebral disc degeneration, lumbar region (principal); M43.8X6 Other specified deforming dorsopathies, lumbar region
CPT/HCPCS: 78306; A9503

== ENCOUNTER → 2017-08-08 | Outpatient (CLI) | payer MEDICARE, OTHER ==
--- NOTE | 2017-08-08 09:18 | CT ---
EXAMINATION TYPE: CT lumbar spine wo con DATE OF EXAM: 08/08/2017 8:51 AM COMPARISON: MRI lumbar spine January 30, 2014. Nuclear medicine bone scan August 02, 2017 HISTORY: Low back pain, spondylolisthesis, spondylosis without myelopathy, and other intervertebral d isc degeneration all per order. Abnormal MRI signal T12, L3, and S1 levels also per order. Back pain for one month per patient. CT DLP: 467.4 mGycm Automated exposure control for dose reduction was used. Unenhanced CT of the lumbar spine was performed without IV contrast. Bone and soft tissue window set tings are submitted as well as coronal and sagittal reconstructions. IV contrast was not given due to diminished renal function. Findings: There are 5 lumbar-type vertebra redemonstrated. Lumbar spine shows stable and satisfactory alignment. There is no acute fracture or dislocation seen. Vertebral body heights are fairly well-ma intained. There is mild disc space narrowing L2-L3 level redemonstrated. No large posterior disc nikhil iations are seen on sagittal images. There is mild to moderate multilevel anterior and lateral spurri ng. No suspicious focal lytic or sclerotic lesions are identified. Axial images show the T12-L1 and L1-L2 levels to appear within normal limits. Axial images at L2-L3 level show mild to moderate broad disc bulge mildly effacing anterior thecal sa c with mild facet degenerative changes bilaterally. Bilateral neural foramina show mild narrowing. Axial images at L3-L4 level show mild to moderate broad disc bulge mildly effacing anterior thecal sa c with mild to moderate facet degenerative changes bilaterally effacing posterior lateral thecal sac. There is mild bilateral anterior inferior neural foraminal narrowing at this level identified. Axial images at L4-L5 level show moderate facet degenerative changes and ligamentum flavum hypertroph y. There is moderate broad disc bulge seen. There is effacement of anterior thecal sac. There is mild right and moderate left-sided neural foraminal narrowing at this level identified. Axial images at L5-S1 level show mild to moderate facet degenerative changes bilaterally. Spinal romie l is preserved. Bilateral neural foramina are patent. There is mild to moderate calcified plaque in the visualized abdominal aorta. There is round 2.3 cm T 2 hyperintense lesion anteriorly upper to mid pole level axial image 22 felt to reflect simple cyst. IMPRESSION: Some multilevel degenerative changes in the mid to lower lumbar spine as detailed above. No suspicious osseous lesions noted. Negative bone scan at this level noted.
== END | disposition home or self-care (01) ==
LOC: RADCTMAIN 07:16
PROVIDERS: ATTEND Physical Medicine & Rehabilitation
DX: M47.816 Spondylosis without myelopathy or radiculopathy, lumbar region (principal)
CPT/HCPCS: 72131; 82565; 84520

== ENCOUNTER → 2017-08-13 | Outpatient (CLI) | payer MEDICARE, OTHER ==
--- NOTE | 2017-08-13 15:51 | US ---
EXAMINATION TYPE: US abdomen comp/pelvis limited DATE OF EXAM: 08/13/2017 COMPARISON: NONE CLINICAL HISTORY: 72-year-old male R79.89 ABN FINDINGS OF BLOOD CHEMISTRY. Abnormal labs TECHNIQUE: Multiple sonographic images of the abdomen and bladder are obtained. FINDINGS: Liver Length: 14.1 cm Gallbladder Wall: 0.3 cm CBD: 0.5 cm Spleen: 12.1 cm Right Kidney: 10.3 x 4.8 x 4.9 cm Left Kidney: 10.7 x 5.1 x 5.0 cm Pancreas: Suboptimal visualization of the pancreatic tail secondary to shadowing from bowel gas. Liver: Normal size and with normal homogeneous echotexture. Gallbladder: No abnormal distention, wall thickening, pericholecystic fluid, or shadowing calculi. T here is some comet tail artifact from the anterior gallbladder wall. CBD: wnl Spleen: Within normal limits. Right Kidney: Lower pole gassed out, benign cyst mid/medial= 3.0 x 2.7 x 2.9 cm . No hydronephrosi s. Left Kidney: No hydronephrosis. Lower pole gassed out Upper IVC: wnl Abd Aorta: Proximal portion ectatic at 2.9 cm. Bladder: Incompletely distended. Both ureteral jets are visualized. Prostate gland is prominent measu ring 4.1 x 5.0 x 4.9 cm IMPRESSION: 1. No hydronephrosis. There is a 3.0 cm benign cyst on the right. 2. Prostatomegaly (5.0 cm). 3. Some scattered comet tail artifact in the gallbladder can be seen in the setting of adenomyomatosi s. 4. Ectatic upper abdominal aorta at 2.9 cm.
== END | disposition home or self-care (01) ==
LOC: RADUSWWP 10:55
PROVIDERS: ATTEND Surgery Vascular Surgery
DX: I77.811 Abdominal aortic ectasia (principal); N40.0 Benign prostatic hyperplasia without lower urinary tract symptoms; N28.1 Cyst of kidney, acquired
CPT/HCPCS: 76700; 76857

== ENCOUNTER → 2019-09-19 | Day surgery (SDC) | payer MEDICARE, OTHER ==
[2019-09-18 09:33] VITALS: BMI 26.5
[~2019-09-19] MED LIST changes: +LIDOCAINE 1% (10MG/ML) FOR IV START INTRADERMA PRN; +LIDOCAINE 1% INJ 10MG/ML (20 ML MDV) ONE; +PROPOFOL 10 MG/ML 20 ML VIAL IV ONE
[2019-09-19 07:55] VITALS: TEMP 97.4
[2019-09-19 08:05] LABS: Glucose,Whole Blood 130 mg/dL (75-99)
--- NOTE | 2019-09-19 08:43 | P.PCN ---
Date of Procedure: 09/19/19 Procedure(s) Performed: Brief history: Patient is a pleasant 74-year-old male scheduled for an elective upper endoscopy as well as colonoscopy as a part of evaluation of evaluation of iron deficiency anemia and hemoglobin of 7 g/dL. He has history of A. fib and on Coumadin which has been on hold for 5 days. Procedure performed: Esophagogastroduodenoscopy with cautery using a gold probe. Colonoscopy with biopsy and Endo Clip placement Preoperative diagnosis: Iron deficiency anemia Anesthesia: MAC Procedure: After informed consent was obtained from the patient was brought into the endoscopy unit and IV sedation was administered by anesthesia under continuous monitoring. Initially upper endoscopy was done. The Olympus GF 160 video endoscope was inserted inserted into the mouth and esophagus intubated without any difficulty and was gradually advanced into the stomach and duodenum and carefully examined. The bulb and second part of the duodenum appeared normal. There was 3 nonbleeding angiectasia noted in the second part of the duodenum that they cauterized. The scope was then withdrawn into the stomach adequately insufflated with air and upon careful examination the antrum and body, cardia and fundus appeared normal. The scope was then withdrawn into the esophagus. The GE junction was located at 40 cm to the incisors. It appeared regular with no erythema erosions or ulcerations. Rest of the esophagus appeared normal. Patient tolerated the procedure well. At this time the patient continued to remain sedation. Initial digital rectal examination was normal. Olympus CF 160 video colonoscope was then inserted into the rectum and gradually advanced to the cecum without any difficulty. Careful examination was performed as the scope was gradually being withdrawn. The prep was excellent. In the base of the cecum there was a 2 mm polyp that was removed by cold biopsy. Immediately there was brisk bleeding. Endo Clip was adequate hemostasis was achieved. The rest of the cecum, ascending colon, transverse colon, descending colon, appeared normal. In the distal sigmoid colon there was a 3 mm polyp that was removed by cold biopsy. sigmoid colon and rectum appeared normal. Retroflexion was performed in the rectum and grade 2 internal were noted. Patient tolerated the procedure well. Impression: 1. Upper endoscopy revealed duodenal nonbleeding angiectasia status post cautery as described 2. Colonoscopy revealed a 2 mm cecal polyp status post biopsy followed by bleeding, status post Endo Clip was a 3 mm; sigmoid polyp status post removal by cold biopsy. Small internal hemorrhoids Recommendations: Findings of this examination were discussed with the patient as well as his family. was advised to follow with the biopsy results and have a repeat colonoscopy in 5 years. He was advised to resume Coumadin
[2019-09-19 08:54] VITALS: RESP 16
[2019-09-19 09:19] VITALS: BP 160/78; PULSE 81
== END ==
LOC: ORWHC2ENDO 07:02
PROVIDERS: ATTEND Internal Medicine Gastroenterology
DX: D12.5 Benign neoplasm of sigmoid colon (principal); K63.5 Polyp of colon; K64.8 Other hemorrhoids; K31.819 Angiodysplasia of stomach and duodenum without bleeding; D50.9 Iron deficiency anemia, unspecified; I10 Essential (primary) hypertension; E11.9 Type 2 diabetes mellitus without complications; Z98.890 Other specified postprocedural states; Z79.01 Long term (current) use of anticoagulants; Z79.899 Other long term (current) drug therapy
CPT/HCPCS: 88305; 45380; 43255; J2001; J2704; 45382

== ENCOUNTER → 2020-02-02 | Outpatient (CLI) | payer MEDICARE, OTHER ==
--- NOTE | 2020-02-02 13:49 | XR ---
EXAMINATION TYPE: XR skull limited DATE OF EXAM: 02/02/2020 COMPARISON: NONE HISTORY: MRI TECHNIQUE: 2 views FINDINGS: Multiple lucencies within the calvarium could be related to prior surgery. Bony density dm ng the superior margin of the parietal bone could be related to a small osteoma. Hyperostosis noted. No metallic densities overlying the orbits. IMPRESSION: No metallic foreign body overlying the orbits.
== END | disposition home or self-care (01) ==
LOC: RADXRMAIN 13:09
PROVIDERS: ATTEND Physical Medicine & Rehabilitation
DX: S06.9X0A Unspecified intracranial injury without loss of consciousness, initial encounter (principal); R41.3 Other amnesia
CPT/HCPCS: 70250